=== PATIENT | male | born 1950 | race Caucasian/White ===

== ENCOUNTER 2022-06-24 03:22 | Emergency (ER) | payer MEDICARE ==
[~2022-06-24] VITALS: Ht 172.7 cm; Wt 72.6 kg
[~2022-06-24 03:22] MED LIST: ALBUTEROL0.09 MG/A2 IH; DELTASONE10 MG PO; DOXYCYCLINE MO100 MG PO; LEVAQUIN750 MG PO; NKHM; PREDNISONE20 MG PO; PROAIR HFA0.09 MG/AC IH; SPIRIVA -- 3018 MCG INH; ZITHROMAX250 MG PO
[2022-06-24 04:12] LABS: BILIRUBIN Negative (Negative); BLOOD 2+ (Negative); CLARITY Clear (Clear); COLOR Yellow (Yellow); GLUCOSE Negative (Negative); KETONE Negative (Negative); LEUKO ESTERASE Negative (Negative); NITRITE Negative (Negative); UROBILINOGEN 0.2 E.U./dl (0.0-1.0)
[2022-06-24 04:24] LABS: BACTERIA 1+; RBC 16-20 rbc/hpf (0-2); WBC 0-2 wbc/hpf (0-5)
== END 2022-06-24 04:28 | disposition home or self-care (01) ==
LOC: ED 03:22
PROVIDERS: Internal Medicine
DX: R33.9 Retention of urine, unspecified (principal)

== ENCOUNTER 2022-07-06 10:57 | Emergency (ER) | payer MEDICARE ==
[~2022-07-06] VITALS: Ht 172.7 cm; Wt 72.6 kg
== END 2022-07-06 14:23 | disposition home or self-care (01) ==
LOC: ED 10:57
DX: T83.9XXA Unspecified complication of genitourinary prosthetic device, implant and graft, initial encounter (principal); Y92.89 Other specified places as the place of occurrence of the external cause

== ENCOUNTER 2022-07-12 03:32 | Emergency (ER) | payer MEDICARE ==
[~2022-07-12] VITALS: Ht 172.7 cm; Wt 72.6 kg
[2022-07-12 04:26] LABS: BILIRUBIN Negative (Negative); BLOOD Trace-Lysed (Negative); CLARITY Cloudy (Clear); COLOR Yellow (Yellow); GLUCOSE Negative (Negative); KETONE Negative (Negative); LEUKO ESTERASE 3+ (Negative); NITRITE Negative (Negative); PH 5.5 (4.5-8.0); SPECIFIC GRAVITY <= 1.005 (1.001-1.030); UROBILINOGEN 0.2 E.U./dl (0.0-1.0)
[2022-07-12 04:36] LABS: BACTERIA 1+; WBC 31-40 wbc/hpf (0-5)
[2022-07-12] MEDS ORDERED: CIPRO500 MG PO (04:49)
== END 2022-07-12 04:54 | disposition home or self-care (01) ==
LOC: ED 03:32
PROVIDERS: Internal Medicine
DX: R33.9 Retention of urine, unspecified (principal); N30.00 Acute cystitis without hematuria

== ENCOUNTER 2025-06-13 03:31 | Emergency (ER) | payer MEDICARE ==
[~2025-06-13] VITALS: Ht 172.7 cm; Wt 72.6 kg
[~2025-06-13 03:31] MED LIST changes: +CIPRO500 MG PO
== END 2025-06-13 04:51 | disposition left against medical advice (07) ==
LOC: ED 03:31
DX: R33.9 Retention of urine, unspecified (principal); Z53.29 Procedure and treatment not carried out because of patient's decision for other reasons; J44.9 Chronic obstructive pulmonary disease, unspecified